=== PATIENT | male | born 1985 | race Asian ===

== ENCOUNTER 2016-11-09 23:32 | Emergency (ER) | payer BC, OTHER ==
[~2016-11-09] VITALS: Ht 177.8 cm; Wt 81.6 kg
[2016-11-10] MEDS ORDERED: IBUPROFEN 400 MG TABLET ONE (00:19)
[2016-11-10] MEDS ORDERED: IBUPROFEN 400 MG TABLET PO ONE (00:30)
[2016-11-10 00:45] VITALS: BP 134/78
== END 2016-11-10 00:49 | disposition home or self-care (01) ==
LOC: ER 23:38
DX: M25.561 Pain in right knee (principal)
CPT/HCPCS: 73564; 99284; A4606; Z7610

== ENCOUNTER 2016-11-17 12:06 | Outpatient (CLI) | payer BC, OTHER | END 2016-11-17 23:59 | disposition home or self-care (01) | LOC: MRI 12:06 | PROVIDERS: ATTEND Legal Medicine | DX: M23.251 Derangement of posterior horn of lateral meniscus due to old tear or injury, right knee (principal); M65.861 Other synovitis and tenosynovitis, right lower leg; M25.461 Effusion, right knee | CPT/HCPCS: 73721-TC ==

== ENCOUNTER 2017-03-29 10:12 | Outpatient (CLI) | payer BC, OTHER ==
[2017-03-29 10:37] LABS: BASOPHILS % (AUTO) 0.4 % (0.0-2.0); EOSINOPHILS # (AUTO) 0.4 /CMM (0.0-0.7); EOSINOPHILS % (AUTO) 5.9 % (0.0-6.0); HEMATOCRIT 49 % (39-51); HEMOGLOBIN 16.5 g/dL (13.5-17.5); LYMPHOCYTES # (AUTO) 1.4 /CMM (0.8-4.8); LYMPHOCYTES % (AUTO) 21.5 % (20.0-44.0); MEAN CORPUSCULAR HEMOGLOBIN 29 PG (26.0-33.0); MEAN CORPUSCULAR HGB CONC 33 g/dl (31.0-36.0); MEAN CORPUSCULAR VOLUME 86 fL (80-96); MONOCYTES # (AUTO) 0.6 /CMM (0.1-1.30); MONOCYTES % (AUTO) 9.9 % (2.0-12.0); NEUTROPHILS % (AUTO) 62.3 % (43.0-81.0); PLATELET COUNT (AUTO) 236 /CMM (150-450); RDW COEFFICIENT OF VARIATION 13.2 (11.5-15.0); RED BLOOD CELL COUNT(AUTO) 5.76 MIL/uL (4.5-6.0); WHITE BLOOD COUNT (AUTO) 6.4 K/uL (4.3-11.0)
[2017-03-29 10:53] LABS: APPEARANCE,URINE CLEAR (CLEAR); BILIRUBIN,URINE NEGATIVE (NEGATIVE); BLOOD, URINE TRACE-INTA Ery/uL (NEGATIVE); COLOR,URINE YELLOW (YELLOW); KETONES,URINE NEGATIVE (NEGATIVE); LEUKOCYTE ESTERASE ,URINE NEGATIVE (NEGATIVE); NITRITE, URINE NEGATIVE (NEGATIVE); PROTEIN,URINE NEGATIVE (NEGATIVE); UGLUCOSE NEGATIVE (NEGATIVE); UROBILINOGEN,URINE 0.2 EU/dL (0.2)
[2017-03-29 11:19] LABS: BACTERIA,URINE None seen /HPF (None Seen); SQUAMOUS EPITHELIAL CELL,UR None Seen /HPF (None Seen); WBC,URINE NONE SEEN /HPF (0-3)
[2017-03-29 11:20] LABS: ALBUMIN 4.3 g/dL (3.4-5.0); BILIRUBIN,TOTAL 0.7 mg/dL (0.2-1.0); CALCIUM, SERUM 9.1 mg/dL (8.5-10.1); POTASSIUM 3.9 mmol/L (3.5-5.1); TOTAL PROTEIN, SERUM 7.9 g/dL (6.4-8.2)
[2017-03-29 11:29] LABS: THYROID STIMULATING HORMONE 0.518 uIU/mL (0.358-3.74)
[2017-03-30 14:09] LABS: T3, FREE 3.5 pg/mL (2.0-4.4)
== END 2017-03-29 23:59 | disposition home or self-care (01) ==
LOC: LAB 10:12
PROVIDERS: ATTEND Legal Medicine
DX: Z00.01 Encounter for general adult medical examination with abnormal findings (principal); E78.00 Pure hypercholesterolemia, unspecified; E11.9 Type 2 diabetes mellitus without complications; E55.9 Vitamin D deficiency, unspecified
CPT/HCPCS: 36415; 80053-TC; 80061-TC; 81000-TC; 82306; 84439-TC; 84443-TC; 84481; 85025-TC

== ENCOUNTER 2017-04-03 10:17 | Outpatient (CLI) | payer BC | END 2017-04-03 23:59 | disposition home or self-care (01) | LOC: US 10:17 | PROVIDERS: ATTEND Legal Medicine | DX: E04.1 Nontoxic single thyroid nodule (principal) | CPT/HCPCS: 76536-TC ==

== ENCOUNTER 2017-06-13 11:28 | Outpatient (CLI) | payer BC ==
[2017-06-13 11:53] LABS: BASOPHILS % (AUTO) 0.7 % (0.0-2.0); EOSINOPHILS # (AUTO) 0.3 /CMM (0.0-0.7); EOSINOPHILS % (AUTO) 4.8 % (0.0-6.0); HEMATOCRIT 46 % (39-51); LYMPHOCYTES # (AUTO) 1.5 /CMM (0.8-4.8); LYMPHOCYTES % (AUTO) 22.3 % (20.0-44.0); MEAN CORPUSCULAR HEMOGLOBIN 30 PG (26.0-33.0); MEAN CORPUSCULAR HGB CONC 35 g/dl (31.0-36.0); MEAN CORPUSCULAR VOLUME 85 fL (80-96); MONOCYTES # (AUTO) 0.6 /CMM (0.1-1.30); MONOCYTES % (AUTO) 9.8 % (2.0-12.0); NEUTROPHILS # (AUTO) 4.1 /CMM (1.8-8.9); NEUTROPHILS % (AUTO) 62.4 % (43.0-81.0); PLATELET COUNT (AUTO) 244 /CMM (150-450); RDW COEFFICIENT OF VARIATION 13.8 (11.5-15.0); RED BLOOD CELL COUNT(AUTO) 5.41 MIL/uL (4.5-6.0); WHITE BLOOD COUNT (AUTO) 6.6 K/uL (4.3-11.0)
[2017-06-13 12:05] LABS: APPEARANCE,URINE CLEAR (CLEAR); BILIRUBIN,URINE NEGATIVE (NEGATIVE); BLOOD, URINE NEGATIVE Ery/uL (NEGATIVE); COLOR,URINE YELLOW (YELLOW); KETONES,URINE NEGATIVE (NEGATIVE); LEUKOCYTE ESTERASE ,URINE NEGATIVE (NEGATIVE); NITRITE, URINE NEGATIVE (NEGATIVE); PROTEIN,URINE NEGATIVE (NEGATIVE); UGLUCOSE NEGATIVE (NEGATIVE); UROBILINOGEN,URINE 0.2 EU/dL (0.2)
[2017-06-13 12:07] LABS: CALCIUM, SERUM 8.8 mg/dL (8.5-10.1); CREATININE 1.1 mg/dL (0.6-1.3); POTASSIUM 3.7 mmol/L (3.5-5.1)
[2017-06-13 12:16] LABS: INR 0.93 (0.87-1.13); PROTHROMBIN TIME 9.7 SECS (9.5-12.7)
== END 2017-06-13 23:59 | disposition home or self-care (01) ==
LOC: LAB 11:28
PROVIDERS: ATTEND Student in an Organized Health Care Education/Training Program
DX: Z01.812 Encounter for preprocedural laboratory examination (principal)
CPT/HCPCS: 36415; 80048-TC; 81000-TC; 85025-TC; 85730-TC

== ENCOUNTER 2017-06-20 05:37 | Inpatient (IN) | payer BC, OTHER ==
[~2017-06-20] VITALS: Ht 180.3 cm; Wt 95.7 kg
[2017-06-20 06:15] VITALS: BP 130/73
--- NOTE | 2017-06-20 06:30 | NUR ---
MS RN NOTE: RECEIVED PATIENT FOR DAY SURGERY OF RIGHT KNEE ARTHROSCOPY PARTIAL LATERAL MENISCECTOMY. CONSENT SIGNED AND FILED IN CHART. IV STARTED TO RIGHT FOREARM #22 WITH GOOD BLOOD RETURN. PATIENT NPO SINCE MIDNIGHT. BELONGINGS LIST CREATED. BED LOCKED AND IN LOWEST POSITION, CALL LIGHT IN REACH. PATIENT WAITING TO BE PICKED UP FOR SURGERY. WILL ENDORSE TO DAY NURSE TO CONTINUE TO MONITOR TILL PICKED UP FOR SURGERY.
[2017-06-20] MEDS ORDERED: EPINEPHRINE (1:1000) MDV 30 MG/30ML VIAL ONE (06:40)
[2017-06-20] MEDS ORDERED: LIDOCAINE 0.5% HCL 50 ML VIAL ONE (06:40)
[2017-06-20] MEDS ORDERED: ANESTHESIA TRAY IN PYXIS 1 EA TRAY MC ONE (06:57)
--- NOTE | 2017-06-20 07:05 | NUR ---
m/s personal injury specialist: notes pt picked up at this time for surgery accompanied by o.r. staff via bed.
[2017-06-20] MEDS ORDERED: MIDAZOLAM HCL 2 MG/2ML VIAL ONE (07:20)
[2017-06-20] MEDS ORDERED: MORPHINE SULFATE/PF 10 MG/10ML (1MG/ML) AMPUL ONE (08:24)
[2017-06-20] MEDS ORDERED: BUPIVACAINE 0.5 % PF 150 MG/30 ML VIAL ONE (08:25)
[2017-06-20] MEDS ORDERED: FENTANYL PF 100MCG/2ML AMPUL ONE (09:13)
[2017-06-20 09:30] VITALS: BP_SYST 122; BP_SYST 123; BP_DIAS 71; BP_DIAS 83
--- NOTE | 2017-06-20 09:30 | NUR ---
m/s operations specialists: notes received pt from recovery room with dx: s/p right knee arthroscopy. lily wrap to rle intact, clean, and dry. no discharge/drainage noted. at bedside. voiced no discomfort. pt for d'c home today per raza (o.r.) nurse report. will f/u with dr. louis re: prescription and d'c instructions.
[2017-06-20 09:45] VITALS: BP 121/87
--- NOTE | 2017-06-20 10:00 | NUR ---
m/s quality rep: notes dr. louis notified and made aware re: need for prescription and pain med order with new order to d'c home today, morphine 4mg ivp q4 hrs prn. orders read back and carried out and acknowledged. prescription picked up by in dr. louis office. will continue to monitor.
--- NOTE | 2017-06-20 10:00 | NUR ---
m/s masonry inspector: md visit seen by dr. russ and aware that pt is going home today. vital signs remains stable. will continue to monitor.
[2017-06-20 10:15] VITALS: BP 136/83
[2017-06-20] MEDS ORDERED: MORPHINE SULFATE INJ 4 MG/ML DISP.SYRIN IM PRN (10:30)
[2017-06-20] MEDS ORDERED: HYDROCODONE/APAP 5/325MG 1 EACH TABLET PO PRN (10:30)
[2017-06-20 10:45] VITALS: BP 124/73
--- NOTE | 2017-06-20 11:00 | NUR ---
m/s clin asst: d'c instructions discharged instructions with prescription given by mohamud (rn). pt verbalized understanding and aware of f/u appt with dr. louis in 1-2 weeks as schedule and may change dressing in 3 days, apply bandaids and wbat to rle. pain is control at this time. lunch ordered and pt will go after lunch. vital signs remains stable. instructed to call for assistance. will continue to monitor.
[2017-06-20 11:45] VITALS: BP 124/76
--- NOTE | 2017-06-20 11:54 | NUR ---
m/s pressing department supervisor: notes c/o 12/12 right knee pain, medicated with norco 5/325mg po as ordered. will continue to monitor.
--- NOTE | 2017-06-20 12:10 | NUR ---
m/s tow feeder: notes h/l removed with tip intact. pt verbalized relief of pain. pt able to walk with a cane. discharged home in stable condition via private car accompanied by .
== END 2017-06-20 12:15 | disposition home or self-care (01) | DRG 489 ==
LOC: DS 05:37 → MED 05:38
PROVIDERS: ADMIT Student in an Organized Health Care Education/Training Program; ATTEND Student in an Organized Health Care Education/Training Program
PROC: 0SBC4ZZ Excision of Right Knee Joint, Percutaneous Endoscopic Approach (ICD-10-PCS; principal; 2017-06-20 08:02)
DX: S83.281A Other tear of lateral meniscus, current injury, right knee, initial encounter (principal); X58.XXXA Exposure to other specified factors, initial encounter; Y93.67 Activity, basketball; Y92.89 Other specified places as the place of occurrence of the external cause
CPT/HCPCS: 87081-TC; 88300-TC; A4217; A6253; J0171; J0690; J1100; J1885; J2250; J2274; J2405; J2704; J3010; J3490; Z7610

== ENCOUNTER 2017-12-01 12:07 | Outpatient (CLI) | payer BC ==
[2017-12-01 13:01] LABS: BASOPHILS % (AUTO) 0.6 % (0.0-2.0); EOSINOPHILS % (AUTO) 5.9 % (0.0-6.0); HEMATOCRIT 48 % (39-51); LYMPHOCYTES # (AUTO) 1.8 /CMM (0.8-4.8); MEAN CORPUSCULAR HEMOGLOBIN 29 PG (26.0-33.0); MEAN CORPUSCULAR HGB CONC 34 g/dl (31.0-36.0); MEAN CORPUSCULAR VOLUME 88 fL (80-96); MONOCYTES # (AUTO) 0.6 /CMM (0.1-1.30); MONOCYTES % (AUTO) 8.7 % (2.0-12.0); NEUTROPHILS # (AUTO) 3.5 /CMM (1.8-8.9); NEUTROPHILS % (AUTO) 55.8 % (43.0-81.0); PLATELET COUNT (AUTO) 239 /CMM (150-450); RDW COEFFICIENT OF VARIATION 13.7 (11.5-15.0); RED BLOOD CELL COUNT(AUTO) 5.45 MIL/uL (4.5-6.0); WHITE BLOOD COUNT (AUTO) 6.3 K/uL (4.3-11.0)
[2017-12-01 13:17] LABS: ALBUMIN 4.6 g/dL (3.4-5.0); BILIRUBIN,TOTAL 0.5 mg/dL (0.2-1.0); CALCIUM, SERUM 8.7 mg/dL (8.5-10.1); CREATININE 1.1 mg/dL (0.6-1.3); POTASSIUM 3.7 mmol/L (3.5-5.1); TOTAL PROTEIN, SERUM 8.1 g/dL (6.4-8.2)
[2017-12-01 13:30] LABS: THYROID STIMULATING HORMONE 0.939 uIU/mL (0.358-3.74)
[2017-12-01 13:59] LABS: APPEARANCE,URINE CLEAR (CLEAR); BILIRUBIN,URINE NEGATIVE (NEGATIVE); BLOOD, URINE NEGATIVE Ery/uL (NEGATIVE); COLOR,URINE YELLOW (YELLOW); KETONES,URINE NEGATIVE (NEGATIVE); LEUKOCYTE ESTERASE ,URINE NEGATIVE (NEGATIVE); NITRITE, URINE NEGATIVE (NEGATIVE); PROTEIN,URINE NEGATIVE (NEGATIVE); UGLUCOSE NEGATIVE (NEGATIVE); UROBILINOGEN,URINE 0.2 EU/dL (0.2)
[2017-12-05 00:09] LABS: *AREA 13 IGE,TOTAL 218 IU/mL (0-100)
== END 2017-12-01 23:59 | disposition home or self-care (01) ==
LOC: LAB 12:07
PROVIDERS: ATTEND Legal Medicine
DX: Z00.01 Encounter for general adult medical examination with abnormal findings (principal); J30.9 Allergic rhinitis, unspecified
CPT/HCPCS: 80053-TC; 80061-TC; 81000-TC; 82306; 82728-TC; 82746; 82785; 83540-TC; 84439-TC; 84443-TC; 85025-TC; 86003

== ENCOUNTER 2019-04-03 09:27 | Outpatient (CLI) | payer BC ==
[2019-04-03 10:37] LABS: BASOPHILS % (AUTO) 0.7 % (0.0-2.0); EOSINOPHILS % (AUTO) 6.6 % (0.0-6.0); HEMATOCRIT 49 % (39-51); HEMOGLOBIN 16.3 g/dL (13.5-17.5); LYMPHOCYTES # (AUTO) 1.5 /CMM (0.8-4.8); MEAN CORPUSCULAR HGB CONC 33 g/dl (31.0-36.0); MEAN CORPUSCULAR VOLUME 88 fL (80-96); MONOCYTES # (AUTO) 0.5 /CMM (0.1-1.30); MONOCYTES % (AUTO) 9.7 % (2.0-12.0); NEUTROPHILS # (AUTO) 2.9 /CMM (1.8-8.9); PLATELET COUNT (AUTO) 263 /CMM (150-450); RED BLOOD CELL COUNT(AUTO) 5.59 MIL/uL (4.5-6.0); WHITE BLOOD COUNT (AUTO) 5.2 K/uL (4.3-11.0)
[2019-04-03 10:47] LABS: APPEARANCE,URINE CLEAR (CLEAR); BILIRUBIN,URINE NEGATIVE (NEGATIVE); BLOOD, URINE NEGATIVE Ery/uL (NEGATIVE); COLOR,URINE YELLOW (YELLOW); KETONES,URINE NEGATIVE (NEGATIVE); LEUKOCYTE ESTERASE ,URINE NEGATIVE (NEGATIVE); NITRITE, URINE NEGATIVE (NEGATIVE); PROTEIN,URINE NEGATIVE (NEGATIVE); UGLUCOSE NEGATIVE (NEGATIVE); UROBILINOGEN,URINE 0.2 EU/dL (0.2)
[2019-04-03 11:14] LABS: ALBUMIN 4.6 g/dL (3.4-5.0); BILIRUBIN,TOTAL 0.8 mg/dL (0.2-1.0); CALCIUM, SERUM 8.8 mg/dL (8.5-10.1); CREATININE 1.1 mg/dL (0.6-1.3); POTASSIUM 3.5 mmol/L (3.5-5.1); TOTAL PROTEIN, SERUM 8.4 g/dL (6.4-8.2)
[2019-04-03 11:23] LABS: PROSTATE SPECIFIC ANTIGEN SCR 1.59 ng/mL (0.00-4.00); THYROID STIMULATING HORMONE 0.692 uIU/mL (0.358-3.74); URIC ACID 7.1 mg/dL (2.6-7.2)
[2019-04-04 08:07] LABS: FOLIC ACID 7.9 ng/mL (>3.0); THYROID PEROXIDASE (TPO) AB 25 IU/mL (0-34)
== END 2019-04-03 23:59 | disposition home or self-care (01) ==
LOC: LAB 09:27
PROVIDERS: ATTEND Legal Medicine
DX: Z00.00 Encounter for general adult medical examination without abnormal findings (principal); F17.200 Nicotine dependence, unspecified, uncomplicated
CPT/HCPCS: 36415; 80053-TC; 80061-TC; 81000-TC; 82306; 82627; 82728-TC; 83540-TC; 84153-TC; 84402; 84403; 84439-TC; 84443-TC; 84550-TC; 85025-TC; 86376; 86800

== ENCOUNTER 2019-04-04 09:01 | Outpatient (CLI) | payer BC | END 2019-04-04 23:59 | disposition home or self-care (01) | LOC: US 09:01 | PROVIDERS: ATTEND Legal Medicine | DX: E04.2 Nontoxic multinodular goiter (principal); R10.9 Unspecified abdominal pain; F17.200 Nicotine dependence, unspecified, uncomplicated | CPT/HCPCS: 76536-TC; 76700-TC ==

== ENCOUNTER 2019-04-11 11:13 | Outpatient (CLI) | payer BC | END 2019-04-11 23:59 | disposition home or self-care (01) | LOC: MRI 11:13 | PROVIDERS: ATTEND Legal Medicine | DX: S43.432A Superior glenoid labrum lesion of left shoulder, initial encounter (principal); F17.200 Nicotine dependence, unspecified, uncomplicated; X58.XXXA Exposure to other specified factors, initial encounter; Y93.89 Activity, other specified; Y92.89 Other specified places as the place of occurrence of the external cause; Y99.8 Other external cause status | CPT/HCPCS: 73221-TC ==

== ENCOUNTER 2020-01-20 09:21 | Day surgery (SDC) | payer BC ==
[~2020-01-20] VITALS: Ht 180.3 cm; Wt 99.8 kg
[2020-01-20] MEDS ORDERED: CT SWABBABLE VALVE TRANS SET 1 EA INFUS.SET MC ONE (11:15)
[2020-01-20] MEDS ORDERED: IV NS 0.9% 250 ML IV ONE (11:15)
[2020-01-20] MEDS ORDERED: IOHEXOL-350 100 ML VIAL IV ONE (11:15)
[2020-01-20 11:25] LABS: CREATININE 1.3 mg/dL (0.6-1.3); POTASSIUM 3.9 mmol/L (3.5-5.1)
[2020-01-20] MEDS ORDERED: NITROGLYCERIN 0.4 MG/TAB BOTTLE SL ONE (11:30)
[2020-01-20] MEDS ORDERED: NITROGLYCERIN 0.4 MG/TAB BOTTLE ONE (11:37)
[2020-01-20] MEDS ORDERED: METOPROLOL TARTRATE INJ 5 MG/5 ML AMPUL ONE ×2 (11:37→13:26)
[2020-01-20] MEDS: METOPROLOL TARTRATE INJ 5 MG/5 ML AMPUL IVP PRN ×5 (11:38→11:58)
[2020-01-20 11:59] VITALS: BP 124/74
--- NOTE | 2020-01-20 12:03 | NUR ---
RN NOTES; Post CTA: Patient completed CTA, patient denies pain or discomfort at this time. Iv removed on right AC. Ok to d/c home. Patient stable.
[2020-01-20] MEDS ORDERED: IV NS 0.9% 1,000 ML IV STA (12:07)
== END 2020-01-20 13:59 | disposition home or self-care (01) ==
LOC: CT 09:21
PROVIDERS: ATTEND Internal Medicine Interventional Cardiology
DX: I10 Essential (primary) hypertension (principal); R07.9 Chest pain, unspecified; M47.814 Spondylosis without myelopathy or radiculopathy, thoracic region
CPT/HCPCS: 36415; 75574; 80048; J3490 ×2; J7030; J7050; Q9967

== ENCOUNTER 2020-03-31 12:08 | Outpatient (CLI) | payer BC | END 2020-03-31 23:59 | disposition home or self-care (01) | LOC: LAB 12:08 | PROVIDERS: ATTEND Internal Medicine Pulmonary Disease | DX: J45.909 Unspecified asthma, uncomplicated (principal) | CPT/HCPCS: 36415 ==

== ENCOUNTER 2020-10-14 08:10 | Outpatient (CLI) | payer BC ==
[2020-10-14 08:59] LABS: BASOPHILS % (AUTO) 0.7 % (0.0-2.0); EOSINOPHILS % (AUTO) 3.6 % (0.0-6.0); HEMATOCRIT 48 % (39-51); HEMOGLOBIN 15.9 g/dL (13.5-17.5); LYMPHOCYTES # (AUTO) 1.6 /CMM (0.8-4.8); LYMPHOCYTES % (AUTO) 24.5 % (20.0-44.0); MEAN CORPUSCULAR HGB CONC 33 g/dl (31.0-36.0); MEAN CORPUSCULAR VOLUME 87 fL (80-96); MONOCYTES # (AUTO) 0.6 /CMM (0.1-1.30); MONOCYTES % (AUTO) 9.4 % (2.0-12.0); NEUTROPHILS % (AUTO) 61.8 % (43.0-81.0); PLATELET COUNT (AUTO) 244 /CMM (150-450); RED BLOOD CELL COUNT(AUTO) 5.49 MIL/uL (4.5-6.0); WHITE BLOOD COUNT (AUTO) 6.4 K/uL (4.3-11.0)
[2020-10-14 09:13] LABS: BILIRUBIN,URINE NEGATIVE (NEGATIVE); COLOR,URINE YELLOW (YELLOW); LEUKOCYTE ESTERASE ,URINE NEGATIVE (NEGATIVE); NITRITE, URINE NEGATIVE (NEGATIVE); PROTEIN,URINE NEGATIVE (NEGATIVE); UGLUCOSE NEGATIVE (NEGATIVE); UROBILINOGEN,URINE 0.2 EU/dL (0.2)
[2020-10-14 10:15] LABS: CHOLESTEROL 221 mg/dL (<200); FERRITIN 0 ng/mL (8-388); GAMMA GLUTAMYL TRANSFERASE 30 U/L (5-85); THYROID STIMULATING HORMONE < 0.007 uIU/mL (0.358-3.74); TRIGLYCERIDES 145 mg/dL (30-150); URIC ACID 8.3 mg/dL (2.6-7.2)
[2020-10-14 10:27] LABS: ALANINE AMINOTRANSFERASE 76 U/L (12-78); ALBUMIN 4.4 g/dL (3.4-5.0); ALKALINE PHOSPHATASE 50 U/L (46-116); ASPARTATE AMINOTRANSFERASE 44 U/L (15-37); BILIRUBIN,TOTAL 0.7 mg/dL (0.2-1.0); CALCIUM, SERUM 9.3 mg/dL (8.5-10.1); CARBON DIOXIDE 23 mmol/L (21-32); CHLORIDE 103 mmol/L (98-107); GLUCOSE 101 mg/dL (74-106); POTASSIUM 3.8 mmol/L (3.5-5.1); SODIUM SERUM 140 mmol/L (136-145); TOTAL PROTEIN, SERUM 8.1 g/dL (6.4-8.2); UREA NITROGEN, BLOOD 15 mg/dL (7-18)
[2020-10-14 11:47] LABS: IRON, SERUM 93 ug/dl (50-175); TOTAL IRON BINDING CAPACITY 334 ug/dl (250-450)
[2020-10-14 11:48] LABS: HDL CHOLESTEROL 229 mg/dL (40-60)
[2020-10-14 11:49] LABS: FREE T4 (FREE THYROXINE) 1.06 ng/dL (0.76-1.46); LDL 147 mg/dL (0-99)
== END 2020-10-14 23:59 | disposition home or self-care (01) ==
LOC: LAB 08:10
PROVIDERS: ATTEND Legal Medicine
DX: I10 Essential (primary) hypertension (principal); E11.9 Type 2 diabetes mellitus without complications; E78.00 Pure hypercholesterolemia, unspecified; E03.9 Hypothyroidism, unspecified; E55.9 Vitamin D deficiency, unspecified; D64.9 Anemia, unspecified; Z00.00 Encounter for general adult medical examination without abnormal findings
CPT/HCPCS: 36415; 80053-TC; 80061-TC; 82306; 82607-TC; 82626; 82728-TC; 82977-TC; 83540-TC; 83615-TC; 84402; 84403; 84439-TC; 84443-TC; 84550-TC; 85025-TC

== ENCOUNTER 2020-10-15 08:50 | Outpatient (CLI) | payer BC | END 2020-10-15 23:59 | disposition home or self-care (01) | LOC: US 08:50 | PROVIDERS: ATTEND Family Medicine | DX: E04.2 Nontoxic multinodular goiter (principal); K76.0 Fatty (change of) liver, not elsewhere classified | CPT/HCPCS: 76536-TC; 76700-TC ==

== ENCOUNTER 2020-10-16 09:23 | Outpatient (CLI) | payer BC ==
[2020-10-16 10:05] LABS: BASOPHILS % (AUTO) 0.5 % (0.0-2.0); EOSINOPHILS % (AUTO) 3.4 % (0.0-6.0); HEMATOCRIT 48 % (39-51); HEMOGLOBIN 15.8 g/dL (13.5-17.5); LYMPHOCYTES # (AUTO) 1.4 /CMM (0.8-4.8); MEAN CORPUSCULAR HGB CONC 33 g/dl (31.0-36.0); MEAN CORPUSCULAR VOLUME 87 fL (80-96); MONOCYTES # (AUTO) 0.5 /CMM (0.1-1.30); MONOCYTES % (AUTO) 9.2 % (2.0-12.0); NEUTROPHILS # (AUTO) 3.7 /CMM (1.8-8.9); NEUTROPHILS % (AUTO) 62.9 % (43.0-81.0); PLATELET COUNT (AUTO) 241 /CMM (150-450); RED BLOOD CELL COUNT(AUTO) 5.46 MIL/uL (4.5-6.0); WHITE BLOOD COUNT (AUTO) 5.9 K/uL (4.3-11.0)
[2020-10-16 10:17] LABS: BILIRUBIN,URINE NEGATIVE (NEGATIVE); COLOR,URINE YELLOW (YELLOW); LEUKOCYTE ESTERASE ,URINE NEGATIVE (NEGATIVE); NITRITE, URINE NEGATIVE (NEGATIVE); PROTEIN,URINE NEGATIVE (NEGATIVE); UGLUCOSE NEGATIVE (NEGATIVE); UROBILINOGEN,URINE 0.2 EU/dL (0.2)
[2020-10-16 10:27] LABS: THYROID STIMULATING HORMONE 0.654 uIU/mL (0.358-3.74)
[2020-10-16 10:43] LABS: ALBUMIN 4.5 g/dL (3.4-5.0); BILIRUBIN,TOTAL 0.9 mg/dL (0.2-1.0); CALCIUM, SERUM 8.7 mg/dL (8.5-10.1); POTASSIUM 3.7 mmol/L (3.5-5.1); TOTAL PROTEIN, SERUM 8.2 g/dL (6.4-8.2)
[2020-10-17 04:06] LABS: T3, FREE 3.3 pg/mL (2.0-4.4); THYROID PEROXIDASE (TPO) AB <9 IU/mL (0-34)
== END 2020-10-16 23:59 | disposition home or self-care (01) ==
LOC: LAB 09:23
PROVIDERS: ATTEND Legal Medicine
DX: E03.9 Hypothyroidism, unspecified (principal); E78.00 Pure hypercholesterolemia, unspecified; Z00.00 Encounter for general adult medical examination without abnormal findings
CPT/HCPCS: 36415; 80053-TC; 80061-TC; 82607-TC; 82728-TC; 83540-TC; 83615-TC; 84402; 84403; 84439-TC; 84443-TC; 84481; 85025-TC; 86376; 86800

== ENCOUNTER 2020-11-18 11:53 | Outpatient (CLI) | payer BC ==
[2020-11-18 12:56] LABS: BASOPHILS # (AUTO) 0.1 /CMM (0.0-0.2); BASOPHILS % (AUTO) 0.9 % (0.0-2.0); EOSINOPHILS % (AUTO) 3.5 % (0.0-6.0); HEMATOCRIT 47 % (39-51); HEMOGLOBIN 15.4 g/dL (13.5-17.5); LYMPHOCYTES # (AUTO) 1.5 /CMM (0.8-4.8); LYMPHOCYTES % (AUTO) 23.5 % (20.0-44.0); MEAN CORPUSCULAR HGB CONC 33 g/dl (31.0-36.0); MEAN CORPUSCULAR VOLUME 88 fL (80-96); MONOCYTES # (AUTO) 0.6 /CMM (0.1-1.30); MONOCYTES % (AUTO) 9.2 % (2.0-12.0); NEUTROPHILS # (AUTO) 3.9 /CMM (1.8-8.9); NEUTROPHILS % (AUTO) 62.9 % (43.0-81.0); PLATELET COUNT (AUTO) 255 /CMM (150-450); WHITE BLOOD COUNT (AUTO) 6.2 K/uL (4.3-11.0)
== END 2020-11-18 23:59 | disposition home or self-care (01) ==
LOC: US 11:53
PROVIDERS: ATTEND Legal Medicine
DX: E04.1 Nontoxic single thyroid nodule (principal); D68.59 Other primary thrombophilia
CPT/HCPCS: 10021; 36415; 85025-TC; 85730-TC; 88173-TC; 88305-TC

== ENCOUNTER 2021-09-29 15:26 | Outpatient (CLI) | payer BC ==
[~2021-09-29 15:26] MED LIST: ALBU1.257 IH; AZIT500T2 PO; METH4TAB3 PO
[2021-09-29 16:13] LABS: BASOPHILS % (AUTO) 0.4 % (0.0-2.0); EOSINOPHILS % (AUTO) 0.2 % (0.0-6.0); HEMATOCRIT 47 % (39-51); HEMOGLOBIN 15.4 g/dL (13.5-17.5); LYMPHOCYTES # (AUTO) 1.2 K/uL (0.8-4.8); MEAN CORPUSCULAR HGB CONC 33 g/dl (31.0-36.0); MEAN CORPUSCULAR VOLUME 87 fL (80-96); MONOCYTES # (AUTO) 0.6 K/uL (0.1-1.30); NEUTROPHILS # (AUTO) 6.9 K/uL (1.8-8.9); NEUTROPHILS % (AUTO) 78.4 % (43.0-81.0); PLATELET COUNT (AUTO) 243 K/uL (150-450); RED BLOOD CELL COUNT(AUTO) 5.37 MIL/uL (4.5-6.0); WHITE BLOOD COUNT (AUTO) 8.7 K/uL (4.3-11.0)
[2021-09-29 16:14] LABS: BILIRUBIN,URINE NEGATIVE (NEGATIVE); COLOR,URINE YELLOW (YELLOW); LEUKOCYTE ESTERASE ,URINE NEGATIVE (NEGATIVE); NITRITE, URINE NEGATIVE (NEGATIVE); PH,URINE 6.5 (5.0-8.0); PROTEIN,URINE NEGATIVE (NEGATIVE); UGLUCOSE NEGATIVE (NEGATIVE); UROBILINOGEN,URINE 0.2 EU/dL (0.2)
[2021-09-29 16:39] LABS: WBC,URINE NONE SEEN /HPF (0-3)
[2021-09-29 16:40] LABS: BACTERIA,URINE None seen /HPF (None Seen); RBC,URINE 0-2 /HPF (0-2); SQUAMOUS EPITHELIAL CELL,UR None Seen /HPF (None Seen)
[2021-09-29 16:51] LABS: THYROID STIMULATING HORMONE 0.96 uIU/mL (0.358-3.74); URIC ACID 8.2 mg/dL (2.6-7.2)
[2021-09-29 17:07] LABS: ALBUMIN 4.7 g/dL (3.4-5.0); BILIRUBIN,TOTAL 0.9 mg/dL (0.2-1.0); POTASSIUM 3.3 mmol/L (3.5-5.1); TOTAL PROTEIN, SERUM 8.2 g/dL (6.4-8.2)
== END 2021-09-29 23:59 | disposition home or self-care (01) ==
LOC: US 15:26
PROVIDERS: ATTEND Legal Medicine
DX: K76.0 Fatty (change of) liver, not elsewhere classified (principal); Z00.00 Encounter for general adult medical examination without abnormal findings; E78.00 Pure hypercholesterolemia, unspecified; E11.9 Type 2 diabetes mellitus without complications; E55.9 Vitamin D deficiency, unspecified; J30.9 Allergic rhinitis, unspecified; D64.9 Anemia, unspecified; E03.9 Hypothyroidism, unspecified
CPT/HCPCS: 36415; 76700-TC; 80053-TC; 80061-TC; 81001; 82306; 82607-TC; 82785; 83540-TC; 84402; 84403; 84439-TC; 84443-TC; 84550-TC; 85025-TC